=== PATIENT | male | born 1955 | race Caucasian/White ===

== ENCOUNTER 2021-08-28 13:58 | Inpatient (IN) | payer OTHER ==
[2021-08-28] MEDS ORDERED: MENTHOL/PHENOL 1 EACH UD MM PRN (14:46)
[2021-08-28] MEDS ORDERED: MAG HYDROX/AL HYDROX/SIMETH 30 ML UNIT-DOSE CUP PO PRN (14:46)
[2021-08-28] MEDS ORDERED: MAGNESIUM HYDROX 2400MG/30ML ORAL SUSPENSION 30 ML CUP PO PRN (14:46)
[2021-08-28] MEDS ORDERED: IBUPROFEN 400 MG TABLET (FP) PO PRN (14:46)
[2021-08-28] MEDS ORDERED: ONDANSETRON *ODT* 4 MG TABLET SL PRN (14:46)
[2021-08-28] MEDS ORDERED: MAGNESIUM CITRATE 300 ML BOTTLE PO PRN (14:46)
[2021-08-28] MEDS ORDERED: chlordiazePOXIDE HCL 25 MG CAPSULE PO PRN (14:46)
[2021-08-28] MEDS ORDERED: ACETAMINOPHEN 325 MG TABLET (FP) PO PRN ×2 (14:46)
[2021-08-28] MEDS ORDERED: BISMUTH SUBSALICYLATE 524 MG/30 ML PO PRN (14:46)
[2021-08-28 15:32] VITALS: BMI 31.6
[2021-08-28] MEDS ORDERED: ALBUTEROL SO4 2.5/IPRATROPIUM 0.5 INH SOL 3 ML VIAL.NEB. NEB SCH (16:15)
[2021-08-28] MEDS: hydrOXYzine PAMOATE 25 MG CAPSULE (FP) PO SCH ×2 (17:41→23:00)
[2021-08-28] MEDS: chlordiazePOXIDE HCL 25 MG CAPSULE PO SCH ×2 (17:41→23:00)
[2021-08-28] MEDS ORDERED: PATIENT'S OWN MEDICATION (NON-FORMULARY) (Budesonide/Glycopyr/Formoterol [Breztri Aerosphe IH SCH (22:00)
[2021-08-28] MEDS: THIAMINE HCL 100 MG TABLET (FP) PO SCH (23:00)
[2021-08-28] MEDS: MELATONIN 5 MG TABLETS PO SCH (23:00)
[2021-08-29] MEDS: RIVAROXABAN 20 MG TABLET PO SCH ×2 (00:31→10:42)
[2021-08-29] MEDS: predniSONE 5 MG TABLET (UD) PO SCH ×2 (00:31→10:42)
[2021-08-29] MEDS: hydrOXYzine PAMOATE 25 MG CAPSULE (FP) PO SCH ×5 (05:17→22:50)
[2021-08-29] MEDS: chlordiazePOXIDE HCL 25 MG CAPSULE PO SCH ×4 (05:18→22:50)
[2021-08-29] MEDS: METHOCARBAMOL 500 MG TABLET PO PRN (10:42)
[2021-08-29] MEDS: PRENATAL VITAMINS W/ FOLIC ACID TABLET (FP) PO SCH (10:42)
[2021-08-29] MEDS: amLODIPine BESYLATE 10 MG TABLET (FP) PO SCH (10:42)
[2021-08-29 12:31] LABS: BLOOD UREA NITROGEN 10.2 mg/dL (7-18); HEMATOCRIT 35.2 % (35.4-49); HEMOGLOBIN 11.7 GM/dL (11.7-16.9); MCH 29.2 pg (25.7-33.7); MCHC 33.2 g/dl (32.0-35.9); MEAN PLT VOLUME 8.8 fl (7.5-11.1); PLATELET COUNT 166 10^3/uL (134-434); RDW 14.7 % (11.9-15.9); WHITE BLOOD COUNT 6.2 K/mm3 (4.0-10.0)
[2021-08-29 12:35] LABS: CALCIUM 8.9 mg/dL (8.5-10.1)
[2021-08-29 12:36] LABS: ALBUMIN 2.7 g/dl (3.4-5.0)
[2021-08-29 12:39] LABS: CREATININE 1.2 mg/dL (0.55-1.3)
[2021-08-29 12:40] LABS: BILIRUBIN,TOTAL 0.5 mg/dL (0.2-1); TOT PROT 5.9 g/dl (6.4-8.2)
[2021-08-29] MEDS: TIOTROPIUM BROMIDE 2.5 MCG (SPIRIVA) RESPIMAT INHALER IH SCH (13:27)
[2021-08-29] MEDS ORDERED: LOPERAMIDE HCL 2 MG CAPSULE PO ONE (13:29)
[2021-08-29] MEDS: NICOTINE 10 MG CARTRIDGE (INHALER) IH PRN ×2 (16:03→22:50)
[2021-08-29] MEDS: MELATONIN 5 MG TABLETS PO SCH (22:50)
[2021-08-29] MEDS: THIAMINE HCL 100 MG TABLET (FP) PO SCH (22:50)
[2021-08-30] MEDS: hydrOXYzine PAMOATE 25 MG CAPSULE (FP) PO SCH ×5 (05:52→22:08)
[2021-08-30] MEDS: chlordiazePOXIDE HCL 25 MG CAPSULE PO SCH ×4 (05:52→22:08)
[2021-08-30] MEDS: ALBUTEROL SO4 HFA INHALER IH PRN (06:58)
[2021-08-30] MEDS: amLODIPine BESYLATE 10 MG TABLET (FP) PO SCH (11:44)
[2021-08-30] MEDS: RIVAROXABAN 20 MG TABLET PO SCH (11:44)
[2021-08-30] MEDS: predniSONE 5 MG TABLET (UD) PO SCH (11:47)
[2021-08-30] MEDS: PRENATAL VITAMINS W/ FOLIC ACID TABLET (FP) PO SCH (11:48)
[2021-08-30] MEDS: TIOTROPIUM BROMIDE 2.5 MCG (SPIRIVA) RESPIMAT INHALER IH SCH (14:42)
[2021-08-30] MEDS: THIAMINE HCL 100 MG TABLET (FP) PO SCH (22:08)
[2021-08-30] MEDS: MELATONIN 5 MG TABLETS PO SCH (22:08)
[2021-08-30] MEDS: NICOTINE 10 MG CARTRIDGE (INHALER) IH PRN (22:11)
[2021-08-31] MEDS ORDERED: chlordiazePOXIDE HCL 10 MG CAPSULE PO PRN
[2021-08-31] MEDS: hydrOXYzine PAMOATE 25 MG CAPSULE (FP) PO SCH ×5 (05:50→22:33)
[2021-08-31] MEDS: chlordiazePOXIDE HCL 10 MG CAPSULE PO SCH ×4 (05:50→22:33)
[2021-08-31] MEDS: ALBUTEROL SO4 HFA INHALER IH PRN ×2 (10:30→17:40)
[2021-08-31] MEDS: METHOCARBAMOL 500 MG TABLET PO PRN (10:32)
[2021-08-31] MEDS: PRENATAL VITAMINS W/ FOLIC ACID TABLET (FP) PO SCH (10:32)
[2021-08-31] MEDS: predniSONE 5 MG TABLET (UD) PO SCH (10:32)
[2021-08-31] MEDS: TIOTROPIUM BROMIDE 2.5 MCG (SPIRIVA) RESPIMAT INHALER IH SCH (10:33)
[2021-08-31] MEDS: amLODIPine BESYLATE 10 MG TABLET (FP) PO SCH (12:32)
[2021-08-31] MEDS: NICOTINE 10 MG CARTRIDGE (INHALER) IH PRN (14:47)
[2021-08-31] MEDS: RIVAROXABAN 20 MG TABLET PO SCH (17:37)
[2021-08-31] MEDS: POTASSIUM CHLORIDE ORAL LIQUID 20 MEQ/15 ML PO SCH (22:33)
[2021-08-31] MEDS: THIAMINE HCL 100 MG TABLET (FP) PO SCH (22:33)
[2021-08-31] MEDS: MELATONIN 5 MG TABLETS PO SCH (22:34)
[2021-09-01] MEDS: ALBUTEROL SO4 HFA INHALER IH PRN ×2 (03:07→18:03)
[2021-09-01] MEDS: hydrOXYzine PAMOATE 25 MG CAPSULE (FP) PO SCH ×5 (06:08→22:29)
[2021-09-01] MEDS: chlordiazePOXIDE HCL 10 MG CAPSULE PO SCH ×2 (06:09→18:01)
[2021-09-01] MEDS: PRENATAL VITAMINS W/ FOLIC ACID TABLET (FP) PO SCH (10:33)
[2021-09-01] MEDS: POTASSIUM CHLORIDE ORAL LIQUID 20 MEQ/15 ML PO SCH ×2 (10:33→22:29)
[2021-09-01] MEDS: amLODIPine BESYLATE 10 MG TABLET (FP) PO SCH (10:34)
[2021-09-01] MEDS: METHOCARBAMOL 500 MG TABLET PO PRN (10:34)
[2021-09-01] MEDS: TIOTROPIUM BROMIDE 2.5 MCG (SPIRIVA) RESPIMAT INHALER IH SCH (10:34)
[2021-09-01] MEDS: predniSONE 5 MG TABLET (UD) PO SCH (10:34)
[2021-09-01] MEDS: RIVAROXABAN 20 MG TABLET PO SCH (18:00)
[2021-09-01] MEDS: THIAMINE HCL 100 MG TABLET (FP) PO SCH (22:29)
[2021-09-01] MEDS: MELATONIN 5 MG TABLETS PO SCH (22:29)
[2021-09-02] MEDS ORDERED: chlordiazePOXIDE HCL 10 MG CAPSULE PO ONE (05:00)
[2021-09-02] MEDS: hydrOXYzine PAMOATE 25 MG CAPSULE (FP) PO SCH ×2 (05:34→09:51)
[2021-09-02 09:01] VITALS: BP 131/79; PULSE 63; TEMP 97.6
[2021-09-02] MEDS: POTASSIUM CHLORIDE ORAL LIQUID 20 MEQ/15 ML PO SCH (09:51)
[2021-09-02] MEDS: predniSONE 5 MG TABLET (UD) PO SCH (09:51)
[2021-09-02] MEDS: amLODIPine BESYLATE 10 MG TABLET (FP) PO SCH (09:52)
[2021-09-02] MEDS: PRENATAL VITAMINS W/ FOLIC ACID TABLET (FP) PO SCH (09:52)
[2021-09-02] MEDS: TIOTROPIUM BROMIDE 2.5 MCG (SPIRIVA) RESPIMAT INHALER IH SCH (09:55)
== END 2021-09-02 10:25 | disposition home or self-care (01) | DRG 897 ==
LOC: YASAS 13:58 → Y6N 15:59
PROVIDERS: ADMIT Allergy & Immunology; ATTEND Allergy & Immunology
PROC: HZ2ZZZZ Detoxification Services for Substance Abuse Treatment (ICD-10-PCS; principal; 2021-08-28)
DX: F10.230 Alcohol dependence with withdrawal, uncomplicated (principal); F17.200 Nicotine dependence, unspecified, uncomplicated; I48.91 Unspecified atrial fibrillation; J43.9 Emphysema, unspecified; R73.09 Other abnormal glucose; E87.6 Hypokalemia; M54.59 Other low back pain; G89.29 Other chronic pain; I87.2 Venous insufficiency (chronic) (peripheral); Z91.14 Patient's other noncompliance with medication regimen; Z56.0 Unemployment, unspecified
CPT/HCPCS: 36415; 80053; 82962; 83036; 84132; 85027; 86780; C9803; U0003; U0005